=== PATIENT | male | born 1980 | race Hispanic/Latino ===

== ENCOUNTER → 2019-01-02 | Day surgery (SDC) | payer BC ==
[~2019-01-02] MED LIST: FENTANYL CITRATE/PF 100MCG/2 ML INJ ONE; GLIPIZIDE5 MG PO; HYOSCYAMINE SULFATE 0.5 MG/ML INJ ONE; INSULIN REGULAR, HUMAN 100 UNIT/1 ML 3ML VIAL ONE; LISINOPRIL10 MG PO; METFORMIN HCL500 MG PO; MIDAZOLAM HCL 2 MG/2 ML VIAL ONE; PRAVASTATIN SOD20 MG PO; PROPOFOL IV EMULSION 10 MG/ML 50 ML VIAL ONE
--- OUTSIDE RECORDS SUMMARY | 2019-01-02 10:56 | XMS REPORT | Summary of Care ---
Author Author ISHA Sifuentes, THY Organization Unknown Address [facility] Phone Unavailable Care Team Providers Care Stamping Bench Die Maker Name Role Phone ISHA Sifuentes, THY Unavailable Unavailable Virginia Martin M.A. 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.1, G54.1) Status: Active Medications Name Dates Details metFORMIN HCl - 1000 MG Oral Tablet Active glipiZIDE XL TB24 * Refills: 0 Active Gabapentin 300 MG Oral Capsule * Refills: 0 Active Lisinopril 10 MG Oral Tablet * Refills: 0 Active Pravachol 20 MG Oral Tablet * Refills: 0 Active Aspir-Low 81 MG Oral Tablet Delayed Release * Refills: 0 Active Cyclobenzaprine HCl - 5 MG Oral Tablet Take 1 tablet at bedtime as needed for muscle spasm * Quantity: 30 Refills: 1 ISHA Sifuentes, THY * Start : 25-Aug-2018 Active Gabapentin 600 MG Oral Tablet TAKE 1 TABLET BY MOUTH TWICE DAILY * Quantity: 60 Refills: 1 ISHA Sifuentes, THY * Start : 25-Aug-2018 Active Allergies and Adverse Reactions Name Dates Details No Known Drug Allergies (Allergy) Status: Active Past Medical History Name Dates Details History of hyperlipidemia (V12.29, Z86.39) Status: Resolved History of type 2 diabetes mellitus (V12.29, Z86.39) Status: Resolved Procedures Procedure Dates Details History of Cholecystectomy Completed Immunization Name Dates Details Immunizations not documented Family History Name Dates Details Family history of hypertension (V17.49, Z82.49) Status: Active Family history of osteoporosis (V17.81, Z82.62) Status: Active Name Dates Details Family history of diabetes mellitus (V18.0, Z83.3) Status: Active Family history of cerebrovascular accident (CVA) (V17.1, Z82.3) Status: Active Social History Name Dates Details - Status: Name Dates Details Former smoker Vital Signs Date Test Result Details No Known Vitals to report Results Date Description Value Details Results not documented Plan of Care Name Dates Details Planned Observations Planned Goals not documented Interventions Provided Medication Changes* Cyclobenzaprine HCl - 5 MG Oral Tablet - Renew Instructions Name Dates Details Instructions not documented Encounters Appointment; KASHIF VIEIRA M.D. Encounter Diagnosis: Problem not documented On: 25-Aug-2018 8:00 Appointment; KASHIF VIEIRA M.D. Encounter Diagnosis: Problem not documented On: 25-Aug-2018 10:30
--- OUTSIDE RECORDS SUMMARY | 2019-01-02 10:56 | XMS REPORT ---
Author Author [facility] Address Unknown Phone Unavailable Care Team Providers Care Tv Production Assistant Name Role Phone Unavailable Unavailable Problems This patient has no known problems. Allergies, Adverse Reactions, Alerts This patient has no known allergies or adverse reactions. Medications This patient has no known medications. Encounters Start Date/Time End Date/Time Encounter Type Admission Type Attending [facility] Facility Care Department Encounter ID [id number] 00:00:00 2017-04-25 00:00:00 Outpatient [facility] [id number] 2017-04-11 00:00:00 2017-04-11 00:00:00 Outpatient [facility] [id number] 2017-03-29 03:32:44 2017-03-29 03:32:44 Emergency [facility] [id number] 2017-03-29 03:23:10 2017-03-29 03:23:10 Emergency [facility] [id number] 2017-03-29 03:16:20 2017-03-29 03:16:20 Emergency [facility] [id number]
[2019-01-02 15:30] VITALS: BP 119/87
--- NOTE | 2019-01-02 19:53 | Operative Report ---
DATE OF PROCEDURE: 01/02/2019 SURGEON: Casa Lucero MD PROCEDURES: Esophagogastroduodenoscopy with esophageal dilatations, esophageal brushings and biopsies. INDICATIONS FOR EGD: Dysphagia to solids, nausea, and vomiting. MEDICATIONS: The patient was done under MAC, please see anesthesiologist's note. PROCEDURE IN DETAIL: With the patient in left lateral decubitus position, flexible fiberoptic Olympus gastroscope was introduced into the esophagus under direct visualization without any difficulty. There were some patchy intense erythema noted in the distal esophagus. There was also some scattered whitish plaques noted and those were brushed and the brushings were sent to stain for Stephanie. There was a mild stricture noted at the GE junction that was dilated to size 52-[place] Lopez. The scope was then advanced with ease into the stomach traversing a small sliding hiatal hernia. Mucosa overlying the antrum and the body revealed some patchy erythema and [id number] edema and biopsies were obtained, sent to stain for H pylori. The pylorus was of normal contour and shape, it was intubated with ease and the scope was advanced all the way to the second portion of the duodenum. The scope was then withdrawn slowly. Mucosa overlying the proximal second portion and duodenal bulb appeared to be within normal limits. Biopsies were obtained to rule out sprue. The scope was then withdrawn back into the stomach and retroflexed and mucosa overlying the fundus and cardia appeared to be within normal limits. The scope was then straightened out, it was subsequently withdrawn. The patient tolerated the procedure well. IMPRESSION: 1. Distal esophagitis. 2. Rule out Stephanie esophagitis, brushings obtained. 3. 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 4. Small sliding hiatal hernia. 5. Gastritis biopsied. Biopsies sent to stain for Helicobacter pylori. 6. Rule out sprue. PLAN: Follow up histology. Initiate Protonix 40 mg one p.o. q.a.m. a.c. Casa Lucero MD [facility] [place]/CAROLYN /[id number] cc: Lan Condon
== END | disposition home or self-care (01) ==
LOC: OR 10:54
PROVIDERS: ATTEND Internal Medicine Gastroenterology
DX: K22.2 Esophageal obstruction (principal); K29.70 Gastritis, unspecified, without bleeding; K20.9 Esophagitis, unspecified; K44.9 Diaphragmatic hernia without obstruction or gangrene; K22.8 Other specified diseases of esophagus; E11.9 Type 2 diabetes mellitus without complications; I10 Essential (primary) hypertension; Z79.84 Long term (current) use of oral hypoglycemic drugs
CPT/HCPCS: 36415; 43239; 43450; 82948; 93005; J1980; J2250; J2704